=== PATIENT | female | born 1970 | race Caucasian/White ===

== ENCOUNTER 2021-07-06 15:01 | Outpatient (CLI) | payer BC ==
[2021-07-06 21:16] LABS: Anion Gap 16 mmol/L (10-20); BUN (Urea Nitrogen) 12 mg/dL (9.8-20.1); Calc. Creatinine Clearance 0 mL/min (70-130); Carbon Dioxide 22 mmol/L (22-29); Chloride 106 mmol/L (98-107); Potassium 4.9 mmol/L (3.5-5.1); Sodium 139 mmol/L (136-145)
[2021-07-06 21:17] LABS: Hemoglobin 13.2 g/dL (12.0-15.5); Mean Corpuscular HGB CONC 32.6 g/dL (32.0-36.0); Mean Corpuscular Hemoglobin 31.1 pg (27.0-33.0); Mean Corpuscular Volume 95.3 fl (81.6-98.3); Mean Platelet Volume 10.9 fl (7.4-10.4); Platelet Count 338 10x3/uL (150-450); RBC Distribution Width 13.3 % (11.5-14.5); Red Blood Cell (RBC) Count 4.25 10x6/uL (3.90-5.03); White Blood Cell (WBC) Count 7.7 10x3/uL (3.5-10.5)
[2021-07-06 21:55] LABS: Glucose 59 mg/dL (70-105)
[2021-07-07 21:37] LABS: SARS-CoV-2 PCR by NAA Not Detected (NotDetected)
== END 2021-07-06 15:02 | disposition home or self-care (01) ==
LOC: CSHLAB 15:01
PROVIDERS: ATTEND Podiatrist Foot & Ankle Surgery
DX: Z01.812 Encounter for preprocedural laboratory examination (principal); Z20.822 Contact with and (suspected) exposure to COVID-19
CPT/HCPCS: 80048; 85027; U0003; U0005